=== PATIENT | female | born 1990 | race American Indian/Alaskan Native ===

== ENCOUNTER 2016-04-06 08:19 | Emergency (ER) | payer MEDICAID, OTHER ==
[2016-04-06 10:21] LABS: Bacteria,Urine 1+ /HPF (Negative); Bilirubin,Urine NEG (Negative); Blood,Urine NEG (Negative); Ketones,Urine NEG (Negative); Leukocyte Esterase,Urine NEG (Negative); Nitrite,Urine NEG (Negative); Protein,Urine <15 mg/dL mg/dL (Negative); Urobilinogen,Urine < 2.0 mg/dL (<2.0)
[2016-04-06] MEDS ORDERED: TYLENOL PO ONE (11:22)
[2016-04-06 11:41] LABS: Basophils % (Auto) 0.4 % (0.0-1.8); Eosinophils % (Auto) 9.5 % (0.0-4.3); Hematocrit 30.3 % (30.3-42.9); Hemoglobin 10.3 gm/dl (10.1-14.3); Mean Corpuscular HGB Conc 34 % (30-34); Mean Corpuscular Hemoglobin 30 pg (28-32); Mean Corpuscular Volume 87 fl (79-97); Platelet Count 218 K/mm3 (140-440); Red Blood Count 3.48 M/mm3 (3.65-5.03); Red Cell Distribution Width 12.6 % (13.2-15.2); White Blood Count 7.7 K/mm3 (4.5-11.0)
--- NOTE | 2016-04-06 11:43 | Emergency Department Report ---
HPI - General Chief Complaint: Urogenital-Female Time Seen by Provider: 04/06/16 11:24 - HPI HPI: Chief complaint: Vaginal discharge HPI: Patient is a 26-year-old female with a history of one week white creamy vaginal discharge. Patient states she hasn't had any intercourse in the last several months. Patient's last period was in December but she was not aware that she was as she thought she couldn't get because her for fibroids. No abdominal pain or vaginal bleeding. Mode of arrival: private car Source: Patient Began: One week Duration: One week Context: See above Quality: Pain-free Severity: out of 10 Improved with: Nothing Worsened with: Nothing Associated signs and symptoms: See above ED Past Medical Hx - Past Medical History Previous Medical History?: Yes Additional medical history: childbirth by - Surgical History Past Surgical History?: Yes Additional Surgical History: x 2. right knee surgery. x 1 - Social History Smoking Status: Current Every Day Smoker Substance Use Type: Marijuana - Medications Home Medications: Home Medications Medication Instructions Recorded Confirmed Last Taken Type No Known Home Medications [No 04/06/16 04/06/16 Unknown History Reported Home Medications] ED Review of Systems ROS: Stated complaint: VAG DISCHARGE/ABD PAIN/CRAMPING Other details as noted in HPI ROS Constitutional: No fever ENT: No uri symptoms Cardiovascular: No chest pain Respiratory: No sob or cough GI: No nausea vomiting or diarrhea : No dysuria frequency or urgency, Skin: No rash Neuro: No focal weakness or numbness Psych: No depression Clarence/lymph: No edema Physical Exam - Physical Exam Vital Signs: Vital Signs 04/06/16 08:28 Temperature 98.6 F Pulse Rate 90 Respiratory 18 Rate Blood Pressure 112/66 O2 Sat by Pulse 99 Oximetry Physical Exam: GENERAL: The patient is well-developed well-nourished. Patient appears to have dwarfism. HEENT: Normocephalic. Atraumatic. Extraocular motions are intact. Patient has moist mucous membranes. NECK: Supple. No meningitic signs are noted. There is no adenopathy noted. CHEST/LUNGS: Clear to auscultation. There is no respiratory distress noted. HEART/CARDIOVASCULAR: Regular. There is no tachycardia. There is no gallop rub or murmur. ABDOMEN: Abdomen is soft, nontender. Patient appears to have a gravid uterus. Patient has normal bowel sounds. There is no abdominal distention. : Pelvic exam shows a closed cervix with white creamy vaginal discharge. No cervical motion tenderness. Enlarged uterus. SKIN: There is no rash. There is no edema. There is no diaphoresis. NEURO: The patient is awake, alert, and oriented. The patient is cooperative. The patient has no focal neurologic deficits. The patient has normal speech. MUSCULOSKELETAL: There is no tenderness or deformity. There is no limitation range of motion. There is no evidence of acute injury. ED Course Vital Signs 04/06/16 08:28 Temperature 98.6 F Pulse Rate 90 Respiratory 18 Rate Blood Pressure 112/66 O2 Sat by Pulse 99 Oximetry ED Medical Decision Making - Lab Data Result diagrams: 04/06/16 11:23 04/06/16 11:23 Laboratory Tests 04/06/16 09:08 Urine WBC (Auto) 1.0 Urine RBC (Auto) 3.0 U Epithel Cells (Auto) 3.0 Urine Bacteria (Auto) 1+ Urine HCG, Qual Positive A Laboratory Tests 04/06/16 04/06/16 11:23 11:23 Albumin 3.3 L HCG, Quant 16510 H - Radiology Data Radiology results: pending (preliminary reading shows ultrasound date of 13 weeks and heart rate 164.) Critical care attestation.: If time is entered above; I have spent that time in minutes in the direct care of this critically ill patient, excluding procedure time. ED Disposition Clinical Impression: IUP (intrauterine ), incidental Disposition: DISCHARGED TO HOME OR SELFCARE Is pt being admited?: No Does the pt Need Aspirin: No Condition: Stable Referrals: YASMINE DUARTE MD [Staff Physician] - 3-5 Days Time of Disposition: 14:15
[2016-04-06 11:57] LABS: Alanine Aminotransferase 11 units/L (7-56); Albumin 3.3 g/dL (3.9-5); Albumin/Globulin Ratio 1.1 %; Alkaline Phosphatase 42 units/L (35-129); Anion Gap 16 mmol/L; Bilirubin,Total < 0.2 mg/dL (0.1-1.2); Blood Urea Nitrogen 4 mg/dL (7-17); Calcium 8.3 mg/dL (8.4-10.2); Carbon Dioxide 22 mmol/L (22-30); Glucose 80 mg/dL (65-100); Potassium 4.3 mmol/L (3.6-5.0); Sodium 134 mmol/L (137-145); Total Protein 6.3 g/dL (6.3-8.2)
[2016-04-06 13:38] VITALS: BP 107/69
--- NOTE | 2016-04-06 14:46 | Ultrasound Report ---
FINAL REPORT EXAM: US OB \T\gt; = 14 WEEKS FETUS HISTORY: abd pain preg TECHNIQUE: Transabdominal OB ultrasound. PRIORS: None currently available. FINDINGS: Single intrauterine dates 13.3 weeks. SIM equals October 09, 2016. This is 2 days younger compared to the LMP and is within normal limits. BPD: 13.6 weeks. HC: 14.2 weeks. AC: 13.2 weeks. FL: 13.3 weeks. Presentation: Breech. Placenta: Posterior. Grade 0. no previa. heart rate: 164 BPM. Amniotic fluid index: 9 cm. Within normal limits. Closed cervix measures 5.7 cm. Images of the spine are within normal limits. IMPRESSION: Single live intrauterine .
== END 2016-04-06 15:49 | disposition home or self-care (01) ==
LOC: ED 08:19
DX: Z32.01 Encounter for pregnancy test, result positive (principal); N89.8 Other specified noninflammatory disorders of vagina; F17.200 Nicotine dependence, unspecified, uncomplicated; F12.10 Cannabis abuse, uncomplicated
CPT/HCPCS: 36415; 76805; 80053; 81001; 81025; 84702; 85025; 86900; 86901; 87591; 99284

== ENCOUNTER 2016-09-30 20:51 | Inpatient (IN) | payer MEDICAID ==
[2016-09-30] MEDS ORDERED: LACTATED RINGERS 1,000 ML IV ONE (21:22)
[2016-09-30] MEDS ORDERED: PEPCID IV ONE (22:29)
[2016-09-30] MEDS ORDERED: BICITRA PO ONE (22:29)
[2016-09-30] MEDS ORDERED: REGLAN IV ONE (22:29)
--- NOTE | 2016-09-30 22:31 | History and Physical Report ---
History of Present Illness Date of examination: 09/30/16 Chief complaint: Current contractions History of present illness: 26-year-old 002 at 38+5 weeks presents with recurrent uterine contractions , she is a [employer] patient. Patient presented with contractions and complained of leaking fluid with passage of mucous plug. On exam, patient appears to have a negative signs symptoms of rupture of membranes. However, on review of her tracing she is having recurrent variable decelerations with contractions. She is status post 2 prior C-sections care has been unremarkable per patient She has Dwarfism Past History Past Medical History: no pertinent history Past Surgical History: section (# 2) [employer] History: denies: chlamydia, gonorrhea, hepatitis B, hepatitis C, herpes, HIV , syphilis, trichomonas Social history: single, full code. denies: smoking, alcohol abuse, prescription drug abuse, IV drug use - Obstetrical History Expected Date of Delivery: 10/09/16 Actual Gestation: 38 Week(s) 5 Day(s) : 3 Para: 2 Medications and Allergies Allergies Allergy/AdvReac Type Severity Reaction Status Date / Time No Known Allergies Allergy Verified 09/30/16 21:26 Home Medications Medication Instructions Recorded Confirmed Last Taken Type No Known Home Medications [No 04/06/16 04/06/16 Unknown History Reported Home Medications] Review of Systems Constitutional: no fever, no chills, no anorexia, no fatigue, no weakness Cardiovascular: no chest pain, no orthopnea, no palpitations, no syncope, no lightheadedness, no shortness of breath, no dyspnea on exertion, no paroxysmal nocturnal dyspnea, no high blood pressure Respiratory: no cough, no hemoptysis, no shortness of breath, no dyspnea on exertion, no sleep apnea Gastrointestinal: abdominal pain, no nausea, no vomiting Genitourinary: no vaginal bleeding, no vaginal discharge, no leakage of fluid - Vital Signs Vital signs: Vital Signs Pulse BP 64 132/78 09/30/16 21:02 09/30/16 21:02 Temp Pulse Resp BP Pulse Ox 64 132/78 09/30/16 21:02 09/30/16 21:02 - Physical Exam Cardiovascular: Regular rate, Normal S1, Normal S2 Lungs: Positive: Clear to auscultation, Normal air movement Abdomen: Positive: normal appearance, soft. Negative: distention, tenderness, guarding, rigidity Uterus: Positive: enlarged (EFW ~ 3400) Adnexa: both: normal Extremities: Positive: normal - Obstetrical FHR: category 2 Results All other labs normal. Assessment and Plan A: 26-year-old 002 at 38+5 weeks -Cat 2 tracing P: -Proceed with 3rd repeat -Patient has been consented - Patient Problems (1) 38 weeks gestation of Current Visit: Yes Status: Acute (2) Non-reassuring electronic monitoring tracing Current Visit: Yes Status: Acute (3) Dwarfism Current Visit: Yes Status: Acute (4) History of 2 sections Current Visit: Yes Status: Acute
[2016-09-30] MEDS ORDERED: EMLA TP PRN (22:40)
[2016-09-30] MEDS ORDERED: LACTATED RINGERS 1,000 ML IV SCH (23:00)
[2016-09-30] MEDS ORDERED: PITOCin/NS 20 UNIT/1000ML DRIP 20 UNITS/1,000 ML BAG IV SCH (23:00)
[2016-09-30] MEDS ORDERED: ANCEF/STERILE WATER 2 GM/20 ML 2 GM/20 ML SYRINGE IV NR (23:00)
[2016-09-30 23:09] LABS: Basophils % (Auto) 0.4 % (0.0-1.8); Eosinophils % (Auto) 3.2 % (0.0-4.3); Hematocrit 29.9 % (30.3-42.9); Hemoglobin 9.5 gm/dl (10.1-14.3); Mean Corpuscular HGB Conc 32 % (30-34); Mean Corpuscular Hemoglobin 27 pg (28-32); Mean Corpuscular Volume 84 fl (79-97); Red Blood Count 3.56 M/mm3 (3.65-5.03); Red Cell Distribution Width 14.6 % (13.2-15.2); White Blood Count 7.2 K/mm3 (4.5-11.0)
[2016-09-30 23:23] LABS: Platelet Count 170 K/mm3 (140-440)
[2016-09-30] MEDS ORDERED: NEO SYNEPHRINE/NS Syringe(OR USE) IV ONE (23:25)
[2016-09-30] MEDS ORDERED: ZOFRAN ONE (23:25)
[2016-09-30] MEDS ORDERED: NACL 0.9% IR ONE (23:25)
[2016-09-30] MEDS ORDERED: WATER FOR IRRIG STERILE IR ONE (23:25)
[2016-09-30] MEDS ORDERED: MORPHINE IV PRN ×2 (23:31)
[2016-09-30] MEDS ORDERED: BENADRYL IV PRN (23:31)
[2016-09-30] MEDS ORDERED: ZOFRAN IV PRN (23:31)
[2016-09-30] MEDS ORDERED: NARCAN 0.4 MG/1 ML IV PRN (23:31)
--- NOTE | 2016-09-30 23:31 | Anesthesia Consultation ---
Anesthesia Consult and Med Hx Date of service: 09/30/16 - Airway Anesthetic Teeth Evaluation: Good ROM Head & Neck: Adequate Mental/Hyoid Distance: Adequate Mallampati Class: Class II Intubation Access Assessment: Probably Good - Pulmonary Exam CTA: Yes - Cardiac Exam Cardiac Exam: RRR - Pre-Operative Health Status ASA Pre-Surgery Classification: ASA2 Proposed Anesthetic Plan: Epidural, Spinal - Pulmonary Hx Asthma: No - Cardiovascular System Hx Hypertension: No - Central Nervous System Hx Seizures: No Hx Psychiatric Problems: No - Endocrine Hx Renal Disease: No Hx Hypothyroidism: No Hx Hyperthyroidism: No - Hematic Hx Anemia: No Hx Sickle Cell Disease: No - Other Systems Hx Alcohol Use: No Hx Obesity: Yes - Additional Comments Anesthesia Medical History Comments: DWARFISM, PREVIOUS X 2
[2016-09-30] MEDS ORDERED: MORPHINE ONE (23:36)
[2016-09-30] MEDS ORDERED: SODIUM CHLORIDE FLUSH SYRINGE 10 ML IV NR (23:45)
[2016-10-01] MEDS ORDERED: DEMEROL ONE (00:48)
[2016-10-01 00:49] LABS: Urine Drugs of Abuse Note Disclamer
[2016-10-01] MEDS ORDERED: VERSED ONE (00:53)
[2016-10-01] MEDS ORDERED: LANSINOH TP PRN (01:07)
[2016-10-01] MEDS ORDERED: MILK OF MAGNESIA PO PRN (01:07)
[2016-10-01] MEDS ORDERED: SENOKOT PO PRN (01:07)
[2016-10-01] MEDS ORDERED: TORADOL IV PRN (01:07)
[2016-10-01] MEDS ORDERED: ANUCORT-HC PR PRN (01:07)
[2016-10-01] MEDS ORDERED: TYLENOL PO PRN (01:07)
[2016-10-01] MEDS ORDERED: MYLICON PO PRN (01:07)
[2016-10-01] MEDS ORDERED: PHENERGAN PR PRN (01:07)
[2016-10-01] MEDS ORDERED: NARCAN 0.4 MG/1 ML IV PRN (01:07)
[2016-10-01] MEDS ORDERED: TUCKS PAD TP PRN (01:07)
--- NOTE | 2016-10-01 01:07 | Operative Report ---
Operative Report Operative Report: DATE: 10/01/2016 PREOPERATIVE DIAGNOSIS: 26-year-old 002 at 38+5 weeks, 2 prior C-sections , active labor, category 2 tracing POSTOP DIAGNOSIS: As above + adhesions NAME OF PROCEDURE: 3rd Repeat low transverse section Adhesiolysis SURGEON: VICKI MCKEON MD OIL LEASE BUYER: [] ANESTHESIA: Combined spinal epidural EBL: 500 mL PATHOLOGY SPECIMEN: None URINE OUTPUT: 1 50 mL FINDINGS: Male in cephalic presentation, time of delivery was 00:18, weight was 6 lbs. 5 oz. 2859 grams, Apgars 8 and 9, significant adhesions , normal uterus tubes and ovaries DESCRIPTION OF PROCEDURE: She was taken to the operating room where she was prepped and draped in a sterile fashion, she was placed in the dorsal supine position. Pfannenstiel incision was performed through her prior incisional scar which was carried through to underlying rectus fascia which was on the midline. The fascial incision was extended laterally with use of Gar scissors , the anterior leaf was then grasped with Kochers forceps elevated dissected sharply and bluntly off the underlying rectus in a similar fashion inferior leaf was grasped elevated dissected sharply and bluntly off the underlying rectus. The rectus was in the midline. Significant adhesions noted and adhesiolysis performed in a gentle manner. Good visualization of bladder was noted. A bladder blade was placed in the patient's pelvic cavity; bladder flap could not be created. A hysterotomy incision was then performed in the lower segment with thick meconium amniotic fluid noted, hysterotomy incision was extended laterally with the use of fingers manually. Infant in cephalic presentation was delivered in the usual manner; cord was clamped and cut was handed over to waiting nursery staff. The placenta was then delivered manually intact, the uterus was exteriorized cleared of all clots and debris. Hysterotomy incision was then closed in a running locked fashion with 0 Vicryl on a CTX; using the same suture was imbricate the initial layer. Interrupted [id number] stitches were used to obtain hemostasis. Uterus was then returned to the patient's pelvic cavity; peritoneal edges were grasped with hemostats and Jennifer's elevated copiously irrigation was used to clear the gutters of all clots and debris. Tercel hemostatic agent was then applied to the hysterotomy incision as a means to prevent future bleeding, Interceed was then applied into the pelvic cavity as a means to prevent future adhesions. The peritoneal layer was then closed in a running fashion with 3-0 Vicryl and the rectus was reapproximated with a single [id number] stitch. The fascia was closed in a running fashion with 0 Vicryl and tied in the opposite side. The subcutaneous layer was irrigated and then reapproximated with interrupted [id number] stitches. The skin was closed in a subcuticular manner with 4- 0 Vicryl. She tolerated the procedure well lap and instrument counts were correct 2 she did receive 2 g of Ancef prior to incision she is transferred to PACU in stable condition thank you.
[2016-10-01] MEDS: D5LR 1,000 ML IV SCH ×2 (02:00→06:42)
[2016-10-01] MEDS ORDERED: PITOCin/NS 20 UNIT/1000ML DRIP 20 UNITS/1,000 ML BAG IV SCH (02:00)
[2016-10-01] MEDS ORDERED: SODIUM CHLORIDE FLUSH SYRINGE 10 ML IV NR (02:00)
--- NOTE | 2016-10-01 08:32 | Progress Note ---
Subjective Date of service: 10/01/16 Interval history: 1st POD after Patient is in the bed, comfortable. Pain is well controlled with pain meds. No residual neurological deficit. No pruritus. No anesthesia complications Objective - Constitutional Vitals: Vital Signs - 12hr 09/30/16 10/01/16 10/01/16 21:02 00:43 01:13 Temperature 98.5 F Pulse Rate 64 66 Respiratory Rate Blood Pressure 132/78 119/62 O2 Sat by Pulse Oximetry 10/01/16 10/01/16 10/01/16 01:15 01:20 01:30 Temperature Pulse Rate 69 60 Respiratory 16 14 Rate Blood Pressure 117/65 114/64 O2 Sat by Pulse 97 97 97 Oximetry 10/01/16 10/01/16 10/01/16 01:40 01:50 02:00 Temperature Pulse Rate 59 L 60 56 L Respiratory 22 15 15 Rate Blood Pressure 117/67 114/67 117/72 O2 Sat by Pulse 98 97 98 Oximetry 10/01/16 10/01/16 10/01/16 02:10 02:55 04:00 Temperature 98.6 F 98.6 F Pulse Rate 58 L 77 88 Respiratory 16 16 16 Rate Blood Pressure 117/75 150/76 125/73 O2 Sat by Pulse 98 Oximetry 10/01/16 08:00 Temperature 98 F Pulse Rate 62 Respiratory 18 Rate Blood Pressure 122/60 O2 Sat by Pulse Oximetry - Labs CBC & Chem 7: 09/30/16 21:40 Labs: Abnormal lab results 09/30/16 Range/Units 21:40 RBC 3.56 L (3.65-5.03) M/mm3 Hgb 9.5 L (10.1-14.3) gm/dl Hct 29.9 L (30.3-42.9) % MCH 27 L (28-32) pg [facility] % (Auto) 8.0 H (0.0-7.3) %
[2016-10-01] MEDS: FEOSOL PO SCH (10:12)
[2016-10-01] MEDS: MOTRIN PO PRN ×2 (10:12→20:03)
[2016-10-01] MEDS: PRENATAL VITAMIN PO SCH (10:12)
[2016-10-01] MEDS: PERCOCET 5/325 PO PRN ×3 (10:12→22:13)
[2016-10-01 16:37] LABS: Hematocrit 26.8 % (30.3-42.9); Hemoglobin 8.7 gm/dl (10.1-14.3)
[2016-10-02] MEDS: PERCOCET 5/325 PO PRN ×4 (04:45→21:54)
[2016-10-02] MEDS: PRENATAL VITAMIN PO SCH (09:15)
[2016-10-02] MEDS: FEOSOL PO SCH (09:15)
--- NOTE | 2016-10-02 10:11 | Progress Note ---
Assessment and Plan A: POD #1 Asymptomatic Anemia P: Follow Routine PostOp Orders Infed 100mg Im x 1 dose Encourage increased ambulation Subjective - Subjective Date of service: 10/02/16 Patient reports: appetite normal, voiding normally, pain well controlled, ambulating normally [place]: doing well, bottle feeding Objective - Vital Signs Latest vital signs: Vital Signs Temp Pulse Resp BP 10/02/16 08:05 98.1 F 76 18 114/74 10/02/16 04:45 20 10/02/16 01:15 98.3 F 60 20 116/76 10/01/16 22:13 20 10/01/16 21:20 99 F 65 20 136/89 10/01/16 20:03 18 10/01/16 16:00 98.5 F 62 19 145/88 10/01/16 12:01 98 F 62 18 121/79 Intake and Output 10/01/16 10/02/16 10/02/16 22:59 06:59 14:59 Intake Total 120 360 Output Total 700 Balance -580 360 Intake: Oral 120 Intake, Free Water 360 Output: Urine 700 Void 700 Other: Total, Intake Amount 120 Total, Output Amount 700 # Voids Void 900 - Exam Breasts: Present: normal Cardiovascular: Present: Regular rate Lungs: Present: Clear to auscultation, Normal air movement Abdomen: Present: normal appearance, soft, normal bowel sounds Uterus: Present: normal, firm, fundal height below umbilicus Extremities: Present: normal Incision: Present: normal, dry, dressed - Labs Labs: Abnormal lab results 10/01/16 Range/Units 16:16 Hgb 8.7 L (10.1-14.3) gm/dl Hct 26.8 L (30.3-42.9) %
[2016-10-02] MEDS ORDERED: INFED IM NR (12:30)
[2016-10-02] MEDS: MOTRIN PO PRN (15:10)
[2016-10-03] MEDS: MOTRIN PO PRN (03:45)
[2016-10-03] MEDS: PRENATAL VITAMIN PO SCH (10:28)
[2016-10-03] MEDS: PERCOCET 5/325 PO PRN (10:28)
[2016-10-03] MEDS: FEOSOL PO SCH (10:28)
[2016-10-03 10:34] VITALS: BP 134/84
--- NOTE | 2016-10-03 10:39 | Progress Note ---
Assessment and Plan A: POD #2 Asymptomatic Anemia P: D/C Home today per patient request Follow Routine Postop Orders Continue FESO4 as ordered RTO in One Week Subjective - Subjective Date of service: 10/03/16 Patient reports: appetite normal, voiding normally, pain well controlled, flatus , ambulating normally : doing well, bottle feeding Objective - Vital Signs Latest vital signs: Vital Signs Temp Pulse Resp BP 10/03/16 10:28 20 10/03/16 08:20 98.3 F 60 18 134/84 10/03/16 03:45 18 10/03/16 01:25 98 F 59 L 18 140/78 10/02/16 21:54 20 10/02/16 16:50 98.2 F 76 20 128/80 Intake and Output 10/02/16 10/03/16 10/03/16 22:59 06:59 14:59 Intake Total 120 420 120 Balance 120 420 120 Intake: Oral 120 120 Intake, Free Water 420 Other: Total, Intake Amount 120 120 # Voids Void 1 1 1 - Exam Breasts: Present: normal Cardiovascular: Present: Regular rate Lungs: Present: Clear to auscultation, Normal air movement Abdomen: Present: normal appearance, soft, normal bowel sounds Uterus: Present: normal, firm, fundal height below umbilicus Extremities: Present: normal Incision: Present: normal, dry, intact
--- NOTE | 2016-10-03 10:40 | Discharge Summary ---
Providers - Providers Date of Admission: 09/30/16 22:41 Date of discharge: 10/03/16 Attending physician: YASMINE TRIPATHI MD Primary care physician: YASMINE TRIPATHI MD Hospitalization Reason for admission: active labor Delivery: Procedure: repeat low transverse Episiotomy: none Laceration: none Incision: normal, dry, intact complications: none Discharge diagnosis: IUP at term delivered Christopher baby: male Condition at discharge: Good Disposition: DC-01 TO HOME OR SELFCARE Plan - Discharge Medications Prescriptions: Ibuprofen [Motrin 600 MG tab] 600 mg PO Q8H PRN #30 tablet PRN Reason: Pain Multivitamin with Iron [Multivitamins with Iron] 1 each PO DAILY #30 tablet oxyCODONE /ACETAMINOPHEN [Percocet 5/325] 1 tab PO Q6HR PRN #30 tablet PRN Reason: Pain - Provider Discharge Summary Activity: routine, no sex for 6 weeks, no heavy lifting 4 weeks, no strenuous exercise Diet: routine Instructions: routine Additional instructions: [] Smoking cessation referral if applicable(refer to patient education folder for contact #) [] Refer to [facility]'s [facility] Booklet Call your doctor immediately for: * Fever > 100.5 * Heavy vaginal bleeding ( >1 pad per hour) * Severe persistent headache * Shortness of breath * Reddened, hot, painful area to leg or breast * Drainage or odor from incision. * Keep incision clean and dry at all times and follow doctor's instructions regarding bathing/showering - Follow up plan Follow up: CLAY ASHLEY CNM [Advanced Practice Nurse] - 7 Days
== END 2016-10-03 15:15 | disposition home or self-care (01) | DRG 766 ==
LOC: TRG 20:51 → APU 22:41 → OB 10-01 02:57
PROVIDERS: ADMIT Obstetrics & Gynecology; ATTEND Obstetrics & Gynecology
PROC: 10D00Z1 Extraction of Products of Conception, Low, Open Approach (ICD-10-PCS; principal; 2016-10-01)
PROC: 0DNW0ZZ Release Peritoneum, Open Approach (ICD-10-PCS; 2016-10-01)
DX: O76 Abnormality in fetal heart rate and rhythm complicating labor and delivery (principal); Z3A.38 38 weeks gestation of pregnancy; Z37.0 Single live birth; O34.211 Maternal care for low transverse scar from previous cesarean delivery; O99.62 Diseases of the digestive system complicating childbirth; K66.0 Peritoneal adhesions (postprocedural) (postinfection); O90.81 Anemia of the puerperium; D64.9 Anemia, unspecified
CPT/HCPCS: 36415; 80307; 85014; 85018; 85025; 86850; 86900; 86901; 96360; C9250; J1750; J1885; J2175; J2250; J2270; J2370; J2405; J2590; J2765; J7120; J7121

== ENCOUNTER 2018-10-18 14:13 | Outpatient (CLI) | payer MEDICAID ==
[2018-10-18] MEDS ORDERED: LACTATED RINGERS 1,000 ML IV ONE (15:15)
[2018-10-18 15:57] LABS: Bacteria,Urine 1+ /HPF (Negative); Bilirubin,Urine NEG (Negative); Blood,Urine NEG (Negative); Color,Urine Yellow (Yellow); Mucus,Urine FEW /HPF; Protein,Urine <15 mg/dL mg/dL (Negative); RBC,Urine < 1.0 /HPF (0.0-6.0); Urobilinogen,Urine < 2.0 mg/dL (<2.0)
[2018-10-18] MEDS ORDERED: LACTATED RINGERS 1,000 ML IV SCH (16:00)
[2018-10-18 16:04] LABS: Amphetamine Screen,Urine PRESUMPTIVE NEGATIVE; Benzodiazepines Screen,Urine PRESUMPTIVE NEGATIVE; Cocaine Screen,Urine PRESUMPTIVE NEGATIVE; Methadone Screen,Urine PRESUMPTIVE NEGATIVE; Opiate Screen,Urine PRESUMPTIVE NEGATIVE
[2018-10-18 16:18] LABS: Basophils % (Auto) 0.4 % (0.0-1.8); Eosinophils # (Auto) 0.3 K/mm3 (0.0-0.4); Eosinophils % (Auto) 3.1 % (0.0-4.3); Hematocrit 24.8 % (30.3-42.9); Hemoglobin 8.1 gm/dl (10.1-14.3); Lymphocytes # (Auto) 1.1 K/mm3 (1.2-5.4); Lymphocytes % (Auto) 11.8 % (13.4-35.0); Mean Corpuscular HGB Conc 33 % (30-34); Mean Corpuscular Volume 85 fl (79-97); Monocytes # (Auto) 0.6 K/mm3 (0.0-0.8); Monocytes % (Auto) 7.1 % (0.0-7.3); Platelet Count 148 K/mm3 (140-440); Red Blood Count 2.91 M/mm3 (3.65-5.03)
[2018-10-18 16:35] LABS: Cannabinoid Screen,Urine PRESUMPTIVE POSITIVE
--- NOTE | 2018-10-18 19:27 | Ultrasound Report ---
ULTRASOUND OBSTETRIC third trimester ultrasound biophysical profile Indication: Pelvic pain following trauma. patient. Findings: There is a single intrauterine . BPD = 8 cm = 32 weeks, 1 day(s). Head circumference = 30 cm = 33 weeks, 4 day(s). Abdominal circumference = 26 cm = 32 weeks, 3 day(s). Femur length = 6 cm = 32 weeks, 5 day(s). Overall estimated sonographic age = weeks, day(s). heart rate is 143 beats per minute. position is cephalic. Cervix appears closed. movement is present. Placenta is anterior and grade 2 . Amniotic fluid volume appears normal. ANTONIO measures 7.6 cm Maternal adnexa appear normal. Impression: 1. Single living intrauterine with estimated sonographic age of 32 weeks, 5 day(s). 2. No sonographic abnormality identified. 3. Biophysical profile 8 out of 8 Signer Name: Paxton Charles MD Signed: 10/18/2018 7:23 PM Workstation Name: [id number]
[2018-10-18] MEDS: BRETHINE SUB-Q PRN ×2 (20:32→21:06)
[2018-10-18 21:46] VITALS: BP 110/59
== END 2018-10-18 23:00 | disposition home or self-care (01) ==
LOC: TRG 14:13
PROVIDERS: ATTEND Obstetrics & Gynecology
DX: O26.893 Other specified pregnancy related conditions, third trimester (principal); R10.2 Pelvic and perineal pain; R10.31 Right lower quadrant pain; O62.9 Abnormality of forces of labor, unspecified; O99.323 Drug use complicating pregnancy, third trimester; F12.10 Cannabis abuse, uncomplicated; Z3A.33 33 weeks gestation of pregnancy; Z79.899 Other long term (current) drug therapy; V49.9XXA Car occupant (driver) (passenger) injured in unspecified traffic accident, initial encounter; Y93.89 Activity, other specified; Y99.8 Other external cause status; Y92.410 Unspecified street and highway as the place of occurrence of the external cause
CPT/HCPCS: 36415; 59025; 76816; 76819; 80307; 81001; 85025; 85460; 86850; 86900; 86901; 96360; 96372; J3105; J7120; 96361

== ENCOUNTER 2018-11-28 11:25 | Inpatient (IN) | payer MEDICAID ==
[2018-11-28] MEDS ORDERED: PEPCID IV SCH (12:12)
[2018-11-28] MEDS ORDERED: REGLAN IV SCH (12:12)
--- NOTE | 2018-11-28 12:33 | History and Physical Report ---
History of Present Illness Date of examination: 11/28/18 Date of admission: 11/28/18 11:53 Chief complaint: Leaking of water from vagina. History of present illness: 28 year old female presents to L&D with complaint of contractions and leaking of water from vagina since 11:00 this AM. Patient received care at [facility] and records are available. LMP 02/28/18. EDC 12/05/18 (confirmed by 15.4 week US). significant for the following: achondroplasia, 3 previous sections, transfer in at 22 weeks gestation, UTI (GBS bacteriuria--treated), anemia (supplemented with iron TID), GBS positive. labs: O+, antibody screen negative, rubella immune, pap smear negative, hepatitis B surface antigen negative, HIV negative, hemoglobin electrophoresis , gonorrhea negative, chlamydia negative, urine drug screen + THC, panorama low risk, diabetes screen 110, GBS positive, trichomonas negative. Past History Past Medical History: other (achondroplasia) Past Surgical History: section (3 previous sections), other (internal fixation right knee and ankle age 12 years) [facility] History: denies: abnormal PAP smear, chlamydia, gonorrhea, hepatitis B, hepatitis C, herpes, HIV, syphilis, trichomonas Family/Genetic History: diabetes, hypertension, stroke, cancer Social history: lives with family. denies: smoking, alcohol abuse - Obstetrical History Expected Date of Delivery: 12/05/18 Actual Gestation: 39 Week(s) 0 Day(s) : 6 Para: 3 Hx # Term Pregnancies: 3 Number of Pregnancies: 0 Spontaneous Abortions: 1 Induced : 1 Number of Living Children: 3 Medications and Allergies Allergies Allergy/AdvReac Type Severity Reaction Status Date / Time No Known Allergies Allergy Verified 09/30/16 21:26 Home Medications Medication Instructions Recorded Confirmed Last Taken Type No Known Home Medications [No 10/18/18 10/18/18 Unknown History Reported Home Medications] Active Meds: Active Medications Citric Acid/Sodium Citrate (Bicitra) 30 ml PO ONCE ONE Stop: 11/28/18 13:13 Famotidine (Pepcid) 20 mg IV ONCE ONE Stop: 11/28/18 12:13 Oxytocin/Sodium Chloride (Pitocin/Ns 20 Unit/1000ml Drip) 20 units in 1,000 mls @ 0 mls/hr IV TITR ASHLEE Lactated Ringer's (Lactated Ringers) 1,000 mls @ 2,250 mls/hr IV PREOP ASHLEE Stop: 11/29/18 13:27 Cefazolin Sodium (Ancef/Sterile Water 2 Gm/20 Ml) 2 gm in 20 mls @ 80 mls/hr IV PREOP NR; Protocol Stop: 11/29/18 12:59 Metoclopramide HCl (Reglan) 10 mg IV ONCE ONE Stop: 11/28/18 12:13 Review of Systems All systems: negative (leaking of clear fluid from vagina, contractions) - Vital Signs Vital signs: Membranes grossly ruptured; clear fluid seen leaking from vagina. - Physical Exam Cardiovascular: Regular rate, Normal S1, Normal S2 Lungs: Positive: Clear to auscultation Abdomen: Positive: normal appearance, soft. Negative: tenderness, guarding, rigidity Uterus: Positive: enlarged. Negative: tender (s=d) Extremities: Positive: normal. Negative: tenderness - Obstetrical FHR: category 1 Uterine Contraction Monitor Mode: External Uterine Contraction Pattern: Irregular Uterine Contraction Intensity: Mild Results All other labs normal. Assessment and Plan A: at 39 weeks gestation. Spontaneous rupture of membranes. 3 previous sections. GBS positive. Achondroplasia. Anemia. P: Admit. section orders. Dr. Cano aware of patient's presentation and plans repeat delivery as soon as patient is ready for surgery.
[2018-11-28 12:45] LABS: Basophils % (Auto) 0.4 % (0.0-1.8); Eosinophils # (Auto) 0.1 K/mm3 (0.0-0.4); Eosinophils % (Auto) 1.9 % (0.0-4.3); Hematocrit 33.1 % (30.3-42.9); Hemoglobin 10.7 gm/dl (10.1-14.3); Lymphocytes # (Auto) 1.4 K/mm3 (1.2-5.4); Lymphocytes % (Auto) 19.5 % (13.4-35.0); Mean Corpuscular HGB Conc 32 % (30-34); Mean Corpuscular Volume 84 fl (79-97); Monocytes # (Auto) 0.6 K/mm3 (0.0-0.8); Monocytes % (Auto) 8.4 % (0.0-7.3); Red Blood Count 3.94 M/mm3 (3.65-5.03); Red Cell Distribution Width 19.1 % (13.2-15.2)
--- NOTE | 2018-11-28 12:45 | Anesthesia Consultation ---
Anesthesia Consult and Med Hx Date of service: 11/28/18 - Airway Anesthetic Teeth Evaluation: Good ROM Head & Neck: Adequate Mental/Hyoid Distance: Adequate Mallampati Class: Class II Intubation Access Assessment: Good - Pulmonary Exam CTA: Yes - Cardiac Exam Cardiac Exam: RRR - Pre-Operative Health Status ASA Pre-Surgery Classification: ASA2, Emergency Proposed Anesthetic Plan: Spinal - Pulmonary Hx Asthma: No COPD: No Hx Pneumonia: No - Cardiovascular System Hx Hypertension: No - Central Nervous System Hx Seizures: No Hx Psychiatric Problems: No - Endocrine Hx Renal Disease: No Hx End Stage Renal Disease: No Hx Hypothyroidism: No Hx Hyperthyroidism: No - Hematic Hx Anemia: No Hx Sickle Cell Disease: No - Other Systems Hx Alcohol Use: No Hx Obesity: Yes
[2018-11-28] MEDS ORDERED: NARCAN 0.4 MG/1 ML IV PRN ×2 (12:46→15:00)
[2018-11-28] MEDS ORDERED: PHENERGAN PO PRN (12:46)
[2018-11-28] MEDS ORDERED: DILAUDID IV PRN ×2 (12:46)
[2018-11-28] MEDS ORDERED: ZOFRAN IV PRN ×2 (12:46→15:00)
[2018-11-28] MEDS ORDERED: PHENERGAN PR PRN (12:46)
--- NOTE | 2018-11-28 12:46 | Anesthesia Day of Surgery ---
Anesthesia Day of Surgery - Day of Surgery Patient Examined: Yes Patient H&P Reviewed: Yes Patient is NPO: Yes
[2018-11-28] MEDS ORDERED: DEXMEDETOMIDINE IV ONE (13:00)
[2018-11-28] MEDS ORDERED: LACTATED RINGERS 1,000 ML IV SCH (13:00)
[2018-11-28] MEDS ORDERED: PITOCin/NS 20 UNIT/1000ML DRIP 20 UNITS/1,000 ML BAG IV SCH ×2 (13:00→15:00)
[2018-11-28] MEDS ORDERED: ANCEF/STERILE WATER 2 GM/20 ML 2 GM/20 ML SYRINGE IV NR (13:00)
[2018-11-28] MEDS ORDERED: SODIUM CHLORIDE FLUSH SYRINGE 10 ML IV NR ×2 (13:00→15:00)
[2018-11-28] MEDS ORDERED: fentaNYL-BUPIV 2 MCG/ML-0.125% 200 MCG/100 ML BAG EPIDURAL SCH (13:00)
[2018-11-28] MEDS ORDERED: ZOFRAN ONE (13:00)
[2018-11-28] MEDS ORDERED: BICITRA PO ONE (13:12)
[2018-11-28 13:19] LABS: Platelet Count 163 K/mm3 (140-440)
[2018-11-28] MEDS ORDERED: WATER FOR IRRIG STERILE IR ONE (14:20)
[2018-11-28] MEDS ORDERED: NACL 0.9% IR ONE (14:20)
[2018-11-28] MEDS ORDERED: TORADOL ONE (14:24)
[2018-11-28] MEDS ORDERED: BENADRYL ONE (14:24)
[2018-11-28] MEDS ORDERED: DILAUDID ONE (14:48)
[2018-11-28] MEDS ORDERED: TYLENOL PO PRN (15:00)
[2018-11-28] MEDS ORDERED: TUCKS PAD TP PRN (15:00)
[2018-11-28] MEDS ORDERED: LANSINOH TP PRN (15:00)
[2018-11-28] MEDS ORDERED: D5LR 1,000 ML IV SCH (15:00)
--- NOTE | 2018-11-28 15:11 | Operative Report ---
Operative Report Operative Report: Date of surgery: 11/28/2018 Preoperative diagnoses: Term , spontaneous rupture of membranes, 3 previous sections. Postoperative diagnoses: The same. Operation: Lower segment transverse delivery Surgeon:Chang Cano MD [employer] Supervisor: Tomy Calvillo CRNA Anesthesia: Spinal block Estimated blood loss: 400 mL Complications: None Findings: Procedure in detail: The patient was taken to the operating room and given a spinal block. Patient was placed in the straight supine position and a Mitchell catheter was inserted. The patient was prepped in the abdomen. The drapes were placed. A timeout was done. With the go ahead from the e marketing specialist, a Pfannenstiel incision was made. This incision was carried across the subcutaneous layer to the fascia which was also divided transversely. The recti abdominis muscle flaps were stripped from the fascia using a combination of blunt and sharp dissections. The muscles were in the midline to gain access to the anterior parietal peritoneum which was divided after excluding any underlying viscera. The access to the peritoneal cavity was then widened by manual stretching. The bladder blade was applied. The utero vesicle peritoneal flap was divided transversely allowing the bladder to be displaced caudally. The uterine incision was placed in the lower segment transversely. The uterine incision was carried to the decidual layer. The uterine incision was extended on both sides using the bandage scissors. The amniotic sac was ruptured with clear fluid. The head was lifted out of the false maternal pelvis and delivered through the incision using fundal pressure combined with traction using the vacuum cup. The airways were bulb suctioned beginning with the mouth. Continuing fundal pressure combined with traction on the mandibular processes of the jaw delivered the rest of the baby. The umbilical cord was double clamped and divided. The baby was carefully transferred to the pediatric team. The placenta was manually removed from the uterine cavity. The uterine cavity w as explored and was empty of any placental remnants. The uterine incision was repaired in 2 layers with #1 Vicryl. The surgical line on the uterus was hemostatic. Blood and clots were cleared from the peritoneal cavity. The anterior parietal peritoneum was repaired with #1 Vicryl. The fascia was repaired with #1 Vicryl. The subcutaneous layer was made hemostatic using the Bovie before the skin was closed subcuticularly with 4-0 Vicryl. There were no complications. The estimated blood loss was 400 mL. All sponges and instrument counts were correct. Patient was safely transferred to the recovery room.
--- NOTE | 2018-11-28 15:22 | Post Anesthesia Evaluation ---
- Post Anesthesia Evaluation Patient Participated: Yes Airway Patent: Yes Stable Respiratory Function: Yes Nausea/Vomiting: No Temp > 96.8F: Yes Pain Manageable: Yes Adequeate Hydration: Yes Anesthesia Complications: No Block Receding Appropriately: Yes Patient on Ventilator: No
[2018-11-28] MEDS: NORCO 5/325 PO PRN (20:35)
[2018-11-28] MEDS: TORADOL IV PRN (21:42)
[2018-11-28] MEDS: MORPHINE IV PRN (22:40)
[2018-11-28] MEDS: ANCEF/NS 1 GM/50 ML 1 GM/50 ML BAG IV SCH (22:42)
[2018-11-29] MEDS: TORADOL IV PRN (03:25)
[2018-11-29 03:37] LABS: Hematocrit 20.2 % (30.3-42.9); Hemoglobin 6.5 gm/dl (10.1-14.3)
[2018-11-29] MEDS: MORPHINE IV PRN (06:30)
[2018-11-29] MEDS: ANCEF/NS 1 GM/50 ML 1 GM/50 ML BAG IV SCH (08:47)
[2018-11-29] MEDS: NORCO 5/325 PO PRN ×2 (08:47→18:25)
--- NOTE | 2018-11-29 09:48 | Progress Note ---
Assessment and Plan A: /postop day 1 S/P repeat LTCS. Severe anemia. Chest pain, SOB. P: Repeat H&H per Dr. Cano's order. Hospitalist consult stat. EKG, CXR, d-dimer. Mylicon and Pepcid. If repeat H&H shows severe anemia will recommend blood transfusion to patient. Subjective - Subjective Date of service: 11/29/18 Principal diagnosis: /postop day 1 S/P repeat LTCS Interval history: /postop day 1 S/P repeat low transverse section. Patient reports anterior chest pain when taking deep breath and right shoulder pain this morning. Patient also reports SOB. Denies cough. Patient has been out of bed to ambulate; her Mitchell catheter has been removed. Patient denies passing any gas yet. She is tolerating a liquid diet without nausea or vomiting. Patient denies dizziness, leg pain, fatigue, abdominal pain, or heavy vaginal bleeding. H&H was 6.5/20.2 this AM; Dr. Cano orders to repeat this prior to initiating any treatment. H&H, CXR, EKG, d-dimer, Mylicon, and Pepcid ordered for patient. Consulted hospitalist MD to come and evaluate the patient due to chest pain and SOB per Dr. Cano's order. Patient reports: appetite normal, voiding normally, pain well controlled, ambulating normally, no dizzy ambulation, no flatus, no bowel movement, no nauseated : doing well Objective - Vital Signs Latest vital signs: Vital Signs Temp Pulse Resp BP BP Pulse Ox 11/29/18 07:54 98.1 F 81 18 117/71 11/29/18 05:16 80 20 116/67 98 11/29/18 05:15 98.7 F 11/29/18 01:55 98.4 F 81 18 118/67 99 11/28/18 19:47 98.5 F 102 H 16 113/70 98 11/28/18 16:30 97.7 F 54 L 20 156/98 11/28/18 16:05 98.2 F 53 L 10 L 148/91 99 11/28/18 15:50 55 L 10 L 144/87 99 11/28/18 15:35 60 11 L 130/85 98 11/28/18 15:20 55 L 10 L 120/84 98 10/12/19 15:15 57 L 11 L 122/82 99 11/28/18 15:10 97.7 F 62 11 L 131/85 100 11/28/18 15:04 97.7 F 67 20 120/74 98 11/28/18 12:41 98.2 F 14 11/28/18 12:37 81 149/81 Intake and Output 11/28/18 11/29/18 11/29/18 23:59 07:59 15:59 Intake Total 550 980 Output Total 50 850 Balance 500 130 Intake: IV 550 ANCEF/NS 1 GM/50 ML 1 gm 50 In 50 ml @ 100 mls/hr IV Q8H [facility] Rx#:[id number] Oral 480 Intake, Free Water 500 Output: Urine 50 850 Indwelling Catheter 650 Void 200 Other: Total, Intake Amount 480 Total, Output Amount 200 - Exam Cardiovascular: Present: Regular rate, Normal S1, Normal S2, No murmurs Lungs: Present: Clear to auscultation Abdomen: Present: normal appearance, soft, normal bowel sounds. Absent: distention, tenderness, guarding, rigidity Uterus: Present: normal, firm, fundal height below umbilicus. Absent: bogginess, tenderness Extremities: Present: normal. Absent: tenderness, edema Incision: Present: normal, dry, dressed - Labs Labs: Abnormal lab results 11/28/18 11/29/18 Range/Units 12:02 03:21 Hgb 6.5 L D (10.1-14.3) gm/dl Hct 20.2 L D (30.3-42.9) % MCH 27 L (28-32) pg RDW 19.1 H (13.2-15.2) % [place] % (Auto) 8.4 H (0.0-7.3) %
[2018-11-29] MEDS ORDERED: FEOSOL PO SCH (10:00)
--- NOTE | 2018-11-29 10:48 | XRay Report ---
CHEST 2 VIEWS INDICATION / CLINICAL INFORMATION: chest pain, SOB. COMPARISON: None available. FINDINGS: SUPPORT DEVICES: None. HEART / MEDIASTINUM: Heart is upper normal size. LUNGS / PLEURA: No significant pulmonary or pleural abnormality. No pneumothorax. ADDITIONAL FINDINGS: Moderate gaseous distention of small and large bowel in the upper abdomen. IMPRESSION: 1. No acute pulmonary or pleural findings. Signer Name: Ashley Coles MD Signed: 11/29/2018 10:44 AM Workstation Name: [id number]
[2018-11-29 11:17] LABS: Hemoglobin 6.3 gm/dl (10.1-14.3)
[2018-11-29] MEDS: PEPCID PO SCH ×2 (11:41→21:11)
[2018-11-29] MEDS: MYLICON PO PRN (11:41)
[2018-11-29 11:52] LABS: Hematocrit 19.4 % (30.3-42.9)
--- NOTE | 2018-11-29 13:30 | Event Note ---
Date: 11/29/18 Repeat hemoglobin is 6.3 and hematocrit is 19.4. Patient denies dizziness. Not feeling short of breath anymore and states chest pain is resolving. Normal vital signs. Offered patient blood transfusion. Patient declined blood transfusion. Will supplement with iron.
[2018-11-29] MEDS: IBUPROFEN PO PRN ×2 (13:41→21:11)
[2018-11-29] MEDS: PRENATAL VITAMIN PO SCH (13:42)
[2018-11-29 15:05] LABS: Amphetamine Screen,Urine PRESUMPTIVE NEGATIVE; Benzodiazepines Screen,Urine PRESUMPTIVE NEGATIVE; Cocaine Screen,Urine PRESUMPTIVE NEGATIVE; Methadone Screen,Urine PRESUMPTIVE NEGATIVE
[2018-11-29 17:10] LABS: Cannabinoid Screen,Urine PRESUMPTIVE POSITIVE; Opiate Screen,Urine PRESUMPTIVE POSITIVE
[2018-11-29 20:16] LABS: Basophils % (Auto) 0.2 % (0.0-1.8); Eosinophils # (Auto) 0.1 K/mm3 (0.0-0.4); Hemoglobin 6.2 gm/dl (10.1-14.3); Lymphocytes # (Auto) 1.1 K/mm3 (1.2-5.4); Mean Corpuscular HGB Conc 32 % (30-34); Mean Corpuscular Volume 85 fl (79-97); Monocytes # (Auto) 0.6 K/mm3 (0.0-0.8); Monocytes % (Auto) 7.4 % (0.0-7.3); Platelet Count 127 K/mm3 (140-440); Red Blood Count 2.28 M/mm3 (3.65-5.03); Red Cell Distribution Width 19.5 % (13.2-15.2)
[2018-11-29 20:31] LABS: Alanine Aminotransferase 11 units/L (7-56); Albumin 2.5 g/dL (3.9-5); BUN/Creatinine Ratio 7; Blood Urea Nitrogen 4 mg/dL (7-17); Calcium 7.8 mg/dL (8.4-10.2); Hemolysis Index 0
[2018-11-29 20:36] LABS: Hematocrit 19.3 % (30.3-42.9)
[2018-11-29] MEDS: FEOSOL PO SCH (21:10)
[2018-11-30] MEDS: NORCO 5/325 PO PRN ×2 (05:20→17:03)
--- NOTE | 2018-11-30 07:45 | Consultation ---
History of Present Illness - Reason for Consult Consult date: 11/29/18 Medical management Requesting physician: MADHURI CANO - History of Present Illness Evaluation for SOB and chest pain. Patient is s/p Csection post opday 1. Had Chest painwhich has resolved.Also has some sob and Lightheadedness which is better now Past History Past Medical History: No medical history Past Surgical History: Social history: lives with family. denies: smoking, alcohol abuse Family history: no significant family history Medications and Allergies Allergies Allergy/AdvReac Type Severity Reaction Status Date / Time No Known Allergies Allergy Verified 09/30/16 21:26 Home Medications Medication Instructions Recorded Confirmed Last Taken Type HYDROcodone/APAP 5-325 [[place] 1 - 2 each PO Q4HR PRN 7 Days #30 11/28/18 Unknown Rx 5/325] tablet Active Meds: Active Medications Acetaminophen (Tylenol) 650 mg PO Q4H PRN PRN Reason: Fever >100.5/HUMMEL Acetaminophen/Hydrocodone Bitart ([place] 5/325) 1 each PO Q6H PRN PRN Reason: Pain, Moderate (4-6) Last Admin: 11/30/18 05:20 Dose: 1 each Documented by: Famotidine (Pepcid) 20 mg PO BID [facility] Last Admin: 11/29/18 21:11 Dose: 20 mg Documented by: Ferrous Sulfate (Feosol) 325 mg PO BID [facility] Last Admin: 11/29/18 21:10 Dose: 325 mg Documented by: Oxytocin/Sodium Chloride (Pitocin/Ns 20 Unit/1000ml Drip) 20 units in 1,000 mls @ 250 mls/hr IV DIRECT ASHLEE Dextrose/Lactated Ringer's (D5lr) 1,000 mls @ 125 mls/hr IV DIRECT ASHLEE Last Admin: 11/29/18 01:12 Dose: 125 mls/hr Documented by: Ibuprofen (Ibuprofen) 800 mg PO Q6H PRN PRN Reason: Pain, Mild (1-3) Last Admin: 11/29/18 21:11 Dose: 800 mg Documented by: Ketorolac Tromethamine (Toradol) 15 mg IV Q6H PRN PRN Reason: Pain, Mild (1-3) Stop: 12/03/18 14:59 Last Admin: 11/29/18 03:25 Dose: 15 mg Documented by: Morphine Sulfate (Morphine) 2 mg IV Q4H PRN PRN Reason: Pain, Moderate (4-6) Last Admin: 11/29/18 06:30 Dose: 2 mg Documented by: Multi-Ingredient Ointment (Lansinoh) 1 applic TP PRN PRN PRN Reason: dryness/cracking Multivitamins/Iron/Calcium ( Vitamin) 1 each PO QDAY ASHLEE Last Admin: 11/29/18 13:42 Dose: Not Given Documented by: Naloxone HCl (Narcan 0.4 Mg/1 Ml) 0.1 mg IV Q2MIN PRN PRN Reason: Res Rate </= 8 or 02 SAT < 92% Ondansetron HCl (Zofran) 4 mg IV Q8H PRN PRN Reason: Nausea And Vomiting Simethicone (Mylicon) 80 mg PO Q6H PRN PRN Reason: Gas pain Last Admin: 11/29/18 11:41 Dose: 80 mg Documented by: Witch Tamia/Glycerin (Tucks Pad) 1 each TP PRN PRN PRN Reason: Hemorrhoids/cleansing/soothing Last Admin: 11/29/18 08:48 Dose: 1 each Documented by: Review of Systems All systems: negative Cardiovascular: chest pain, shortness of breath Respiratory: dyspnea on exertion Exam - Constitutional Vitals: Temp Pulse Resp BP Pulse Ox 98.2 F 83 18 126/78 100 11/29/18 23:15 11/29/18 23:15 11/30/18 05:20 11/29/18 23:15 11/29/18 23:15 General appearance: Present: no acute distress, well-nourished - EENT Eyes: Present: PERRL ENT: hearing intact, clear oral mucosa - Neck Neck: Present: supple, normal ROM - Respiratory Respiratory effort: normal Respiratory: bilateral: CTA - Cardiovascular Heart rate: 78 Rhythm: regular Heart Sounds: Present: S1 & S2. Absent: rub, click - Extremities Extremities: no ischemia, pulses intact, pulses symmetrical, No edema Peripheral Pulses: within normal limits - Abdominal General gastrointestinal: Present: soft, non-tender, non-distended, normal bowel sounds Female genitourinary: Present: normal - Integumentary Integumentary: Present: clear, warm, dry - Musculoskeletal Musculoskeletal: gait normal, strength equal bilaterally - Psychiatric Psychiatric: appropriate mood/affect, intact judgment & insight - Neurologic Neurologic: CNII-XII intact, moves all extremities - Allied Health Allied health notes reviewed: nursing, case management Results - Labs CBC & Chem 7: 11/29/18 19:44 11/29/18 19:44 Labs: Abnormal lab results 11/29/18 11/29/18 11/29/18 Range/Units 11:00 11:00 19:44 RBC 2.28 L (3.65-5.03) M/mm3 Hgb 6.3 L 6.2 L (10.1-14.3) gm/dl Hct 19.4 L* 19.3 L* (30.3-42.9) % MCH 27 L (28-32) pg RDW 19.5 H (13.2-15.2) % Plt Count 127 L (140-440) K/mm3 [place] % (Auto) 7.4 H (0.0-7.3) % Lymph # 1.1 L (1.2-5.4) K/mm3 Seg Neutrophils % 76.4 H (40.0-70.0) % D-Dimer 1946.01 H (0-234) ng/mlDDU BUN (7-17) mg/dL Creatinine (0.7-1.2) mg/dL Calcium (8.4-10.2) mg/dL Total Protein (6.3-8.2) g/dL Albumin (3.9-5) g/dL 11/29/18 Range/Units 19:44 RBC (3.65-5.03) M/mm3 Hgb (10.1-14.3) gm/dl Hct (30.3-42.9) % MCH (28-32) pg RDW (13.2-15.2) % Plt Count (140-440) K/mm3 [place] % (Auto) (0.0-7.3) % Lymph # (1.2-5.4) K/mm3 Seg Neutrophils % (40.0-70.0) % D-Dimer (0-234) ng/mlDDU BUN 4 L (7-17) mg/dL Creatinine 0.6 L (0.7-1.2) mg/dL Calcium 7.8 L (8.4-10.2) mg/dL Total Protein 5.2 L (6.3-8.2) g/dL Albumin 2.5 L (3.9-5) g/dL Assessment and Plan - Patient Problems (1) Symptomatic anemia Current Visit: Yes Status: Acute Plan to address problem: Patient has a significant drop of H/h from 10.7/33.1 to 6.5 /20.2.Counselled about Blood transfusion--but patient refuses. Iron tablets for now. Otherwise stable Stable from medicine stand point. Iron tablets as per Dr Cano Will sign off (2) Chest pain Current Visit: Yes Status: Acute Qualifiers: Chest pain type: unspecified Qualified Code(s): R07.9 - Chest pain, unspecified Plan to address problem: Resolved Non specific Reflux??
[2018-11-30] MEDS ORDERED: INFED IM NR (09:38)
[2018-11-30] MEDS: PRENATAL VITAMIN PO SCH (09:38)
[2018-11-30] MEDS: FEOSOL PO SCH ×2 (09:38→22:13)
[2018-11-30] MEDS: IBUPROFEN PO PRN ×2 (09:39→18:04)
[2018-11-30] MEDS: PEPCID PO SCH ×2 (09:39→22:13)
--- NOTE | 2018-11-30 09:49 | Progress Note ---
Assessment and Plan - Patient Problems (1) S/P repeat low transverse Current Visit: Yes Status: Acute Plan to address problem: POD 2 - stable Continue routine postop orders Remove dressing @ 48 hrs postop Ambulation encouraged, as tolerated Anticipate discharge in 24 hours (2) Anemia due to blood loss, acute Current Visit: Yes Status: Acute Plan to address problem: Severe anemia - currently asymptomatic Still declining blood transfusion Infed offered and pt agreed Continue PO iron therapy Repeat H&H 12/01/18 (3) Dwarfism Current Visit: No Status: Acute Subjective - Subjective Date of service: 11/30/18 Principal diagnosis: POD #2, s/p Repeat LTCS Interval history: see H&P, Operative Report, PP/SCIENTIFIC INVESTIGATOR Progress Note and Internal Medicine Consult Note Patient reports: appetite normal, voiding normally, pain well controlled, ambulating normally, no dizzy ambulation [place]: doing well, bottle feeding Objective - Vital Signs Latest vital signs: Vital Signs Temp Pulse Resp BP BP Pulse Ox 11/30/18 09:39 18 11/30/18 07:19 98.4 F 75 18 123/74 11/30/18 05:20 18 11/29/18 23:15 98.2 F 83 20 126/78 100 11/29/18 21:11 18 11/29/18 17:34 98.7 F 82 18 119/55 Intake and Output 11/29/18 11/30/18 11/30/18 23:59 07:59 15:59 Intake Total 480 920 Balance 480 920 Intake: Oral 480 920 Other: Total, Intake Amount 480 480 # Voids Void 1 1 - Exam Cardiovascular: Present: Regular rate Lungs: Present: Clear to auscultation, Normal air movement Abdomen: Present: normal appearance, soft Vulva: both: normal Uterus: Present: normal, firm, fundal height at umbilicus Extremities: Present: normal Incision: Present: normal, dry, intact, dressed Comments: scant lochia - Labs Labs: Abnormal lab results 11/29/18 11/29/18 11/29/18 Range/Units 11:00 11:00 19:44 RBC 2.28 L (3.65-5.03) M/mm3 Hgb 6.3 L 6.2 L (10.1-14.3) gm/dl Hct 19.4 L* 19.3 L* (30.3-42.9) % MCH 27 L (28-32) pg RDW 19.5 H (13.2-15.2) % Plt Count 127 L (140-440) K/mm3 [place] % (Auto) 7.4 H (0.0-7.3) % Lymph # 1.1 L (1.2-5.4) K/mm3 Seg Neutrophils % 76.4 H (40.0-70.0) % D-Dimer 1946.01 H (0-234) ng/mlDDU BUN (7-17) mg/dL Creatinine (0.7-1.2) mg/dL Calcium (8.4-10.2) mg/dL Total Protein (6.3-8.2) g/dL Albumin (3.9-5) g/dL 11/29/18 Range/Units 19:44 RBC (3.65-5.03) M/mm3 Hgb (10.1-14.3) gm/dl Hct (30.3-42.9) % MCH (28-32) pg RDW (13.2-15.2) % Plt Count (140-440) K/mm3 [place] % (Auto) (0.0-7.3) % Lymph # (1.2-5.4) K/mm3 Seg Neutrophils % (40.0-70.0) % D-Dimer (0-234) ng/mlDDU BUN 4 L (7-17) mg/dL Creatinine 0.6 L (0.7-1.2) mg/dL Calcium 7.8 L (8.4-10.2) mg/dL Total Protein 5.2 L (6.3-8.2) g/dL Albumin 2.5 L (3.9-5) g/dL
[2018-11-30] MEDS: MYLICON PO PRN (18:03)
[2018-12-01] MEDS: IBUPROFEN PO PRN ×2 (00:23→06:25)
[2018-12-01] MEDS: NORCO 5/325 PO PRN (04:14)
[2018-12-01 06:05] LABS: Hematocrit 18.7 % (30.3-42.9)
[2018-12-01 08:43] VITALS: BP 123/76
--- NOTE | 2018-12-01 10:01 | Progress Note ---
Assessment and Plan - Patient Problems (1) S/P repeat low transverse Current Visit: Yes Status: Acute Plan to address problem: D/C home Keep incision dry and intact Return to office in 1 week for incision check (2) Anemia due to blood loss, acute Current Visit: Yes Status: Acute Plan to address problem: Asymptomatic Continue oral iron replacement 3x/day with OJ Increase iron rich foods into diet Subjective - Subjective Date of service: 12/01/18 Principal diagnosis: POD #3, s/p Repeat LTCS Interval history: See admission H & P; OB operative summary and PP progress notes Patient reports: appetite normal, voiding normally, pain well controlled, flatus, ambulating normally (up and down hallways), other (States, "I understand that my iron level is low, but I feel fine, and I just want to go home. I know to return to the hospital should I feel bad, but I feel just fine".) : doing well, bottle feeding (and ) Objective - Vital Signs Latest vital signs: Vital Signs Temp Pulse Resp BP BP Pulse Ox 12/01/18 08:19 97.7 F 68 16 123/76 100 11/30/18 23:51 98.0 F 81 20 122/79 100 11/30/18 18:04 20 11/30/18 17:03 20 11/30/18 16:26 98.3 F 77 18 137/88 Intake and Output 11/30/18 12/01/18 12/01/18 23:59 07:59 15:59 Intake Total 840 720 Balance 840 720 Intake: Oral 480 Intake, Free Water 360 720 Other: Total, Intake Amount 480 # Voids Indwelling Catheter 2 Void 2 - Exam Breasts: Present: normal Cardiovascular: Present: Regular rate Lungs: Present: Normal air movement Abdomen: Present: soft, tenderness Uterus: Present: firm, fundal height below umbilicus (U-1) Extremities: Present: normal Deep Tendon Reflex Grade: Normal +2 Incision: Present: dry, intact (no signs of infection) - Labs Labs: Abnormal lab results 12/01/18 Range/Units 05:17 Hgb 6.0 L (10.1-14.3) gm/dl Hct 18.7 L* (30.3-42.9) %
--- NOTE | 2018-12-01 10:04 | Discharge Summary ---
Providers - Providers Date of Admission: 11/28/18 11:53 Date of discharge: 12/01/18 Attending physician: MADHURI DEAN MD 11/29/18 09:38 Consult to Physician [CONS] Stat Comment: Consulting Provider: TARSHA ORDRIGUEZ Physician Instructions: Reason For Exam: chest pain, shortness of breath, S/P C/S 11/29/18 17:56 Consult to Case Management [CONS] Urgent Services Needed at Discharge: Outside [employer] Notified:: case management Phone number called:: yes Primary care physician: MADHURI DEAN MD Hospitalization Reason for admission: IUP at term Delivery: Procedure: repeat low transverse Episiotomy: none Laceration: none Incision: dry, intact (no signs of infection) Other procedures: none complications: none Discharge diagnosis: other (S/P repeat C/S; Asymptomatic anemia) [place] baby: male Hospital course: See admission H & P; OB operative summary and PP progress notes Condition at discharge: Stable Disposition: DC-01 TO HOME OR SELFCARE - Discharge Diagnoses (1) S/P repeat low transverse Status: Acute (2) Anemia due to blood loss, acute Status: Acute Plan - Discharge Medications Prescriptions: Ferrous Sulfate [Feosol 325 MG tab] 325 mg PO TID 30 Days #90 tablet HYDROcodone/APAP 5-325 [[place] 5/325] 1 - 2 each PO Q4HR PRN 7 Days #30 tablet PRN Reason: Pain - Provider Discharge Summary Activity: routine, no sex for 6 weeks, no heavy lifting 4 weeks, no strenuous exercise Diet: other (Iron rich diet) Instructions: routine Additional instructions: [] Smoking cessation referral if applicable(refer to patient education folder for contact #) [] Refer to [facility] Booklet Call your doctor immediately for: * Fever > 100.5 * Heavy vaginal bleeding ( >1 pad per hour) * Severe persistent headache * Shortness of breath * Reddened, hot, painful area to leg or breast * Drainage or odor from incision. * Keep incision clean and dry at all times and follow doctor's instructions regarding bathing/showering * Continue daily iron supplementation as directed - Follow up plan Follow up: MADHURI DEAN MD [Primary Care Provider] - 7 Days
[2018-12-01] MEDS: PRENATAL VITAMIN PO SCH (10:37)
[2018-12-01] MEDS: FEOSOL PO SCH (10:37)
[2018-12-01] MEDS: PEPCID PO SCH (10:37)
== END 2018-12-01 12:50 | disposition home or self-care (01) | DRG 765 ==
LOC: TRG 11:25 → LD 11:53 → OB 16:21
PROVIDERS: ADMIT Obstetrics & Gynecology; ATTEND Obstetrics & Gynecology
PROC: 10D00Z1 Extraction of Products of Conception, Low, Open Approach (ICD-10-PCS; principal; 2018-11-28)
DX: O34.211 Maternal care for low transverse scar from previous cesarean delivery (principal); D62 Acute posthemorrhagic anemia; O99.02 Anemia complicating childbirth; O75.89 Other specified complications of labor and delivery; O99.214 Obesity complicating childbirth; O34.13 Maternal care for benign tumor of corpus uteri, third trimester; D25.2 Subserosal leiomyoma of uterus; O99.824 Streptococcus B carrier state complicating childbirth; Z82.49 Family history of ischemic heart disease and other diseases of the circulatory system; Z83.3 Family history of diabetes mellitus; Z3A.39 39 weeks gestation of pregnancy; Z79.899 Other long term (current) drug therapy; Z37.0 Single live birth; Z82.3 Family history of stroke; Z80.9 Family history of malignant neoplasm, unspecified; Q77.4 Achondroplasia
CPT/HCPCS: 36415; 71046; 80053; 80307; 85014; 85018; 85025; 85379; 86592; 86850; 86900; 86901; 93005; 93010; G0378; J0690; J1170; J1200; J1750; J1885; J2270; J2405; J2590; J2765; J3490; J7120; J7121